=== PATIENT | female | born 2000 | race Caucasian/White ===

== ENCOUNTER 2021-01-13 03:35 | Emergency (ER) | payer SELFPAY ==
[~2021-01-13] VITALS: Ht 162.6 cm; Wt 49.0 kg
[2021-01-13 03:39] VITALS: BP 121/59
--- NOTE | 2021-01-13 03:50 | NUR ---
PT. AMBULATED TO BED 8 FROM TRIAGE WITH STEADY GAIT.
[2021-01-13] MEDS ORDERED: HYDROcodone/APAP 5/325 MG 1 TAB TAB PO ONE (04:05)
--- NOTE | 2021-01-13 04:10 | NUR ---
Report given to CLIFTON Price for transfer of care.
--- NOTE | 2021-01-13 04:34 | NUR ---
to CT via wheelchair
--- NOTE | 2021-01-13 05:12 | NUR ---
Jenniffer arteaga in [facility] - 01/13/21 at 0631 by [email or web address] PT RETURNED FROM CT VIA W.C.
--- NOTE | 2021-01-13 05:17 | NUR ---
Patient appears to be resting comfortably in bed. Awake and waiting for results. Respirations even and unlabored. AAOx4. Safety measures in place. Will continue to monitor.
[2021-01-13] MEDS ORDERED: CYCL-711 PO (06:21)
[2021-01-13] MEDS ORDERED: KETO10TA2 PO (06:21)
--- NOTE | 2021-01-13 06:30 | NUR ---
Patient discharged with v/s stable. Written and verbal after care instructions given and explained. Patient alert, oriented and verbalized understanding of instructions. Ambulatory with steady gait. All questions addressed prior to discharge. ID band removed. Patient advised to follow up with PMD. Rx of FLEXERIL AND KETOROLAC TROMETHAMINE given. Patient educated on indication of medication including possible reaction and side effects. Opportunity to ask questions provided and answered.
[2021-01-13 06:32] VITALS: BP 107/57
== END 2021-01-13 06:30 | disposition home or self-care (01) ==
LOC: MED 03:35
DX: S09.90XA Unspecified injury of head, initial encounter (principal); Z79.899 Other long term (current) drug therapy; V89.2XXA Person injured in unspecified motor-vehicle accident, traffic, initial encounter; Y93.89 Activity, other specified; Y92.89 Other specified places as the place of occurrence of the external cause; Y99.8 Other external cause status
CPT/HCPCS: 70450; 81025; 99284

== ENCOUNTER 2021-12-28 17:30 | Inpatient (IN) | payer MEDICAID ==
[~2021-12-28] VITALS: Ht 165.1 cm; Wt 59.9 kg
[~2021-12-28 17:30] MED LIST: CYCL-711 PO; KETO10TA2 PO
[2021-12-28] MEDS ORDERED: LACTATED RINGERS 1,000 ML IV SCH (18:55)
[2021-12-28] MEDS ORDERED: PRETAB PO (18:57)
[2021-12-28 18:59] VITALS: BP 114/62
[2021-12-28] MEDS ORDERED: diphenhydrAMINE 50 MG/ML VIAL IVP SCH (21:20)
[2021-12-28] MEDS ORDERED: NIFEdipine 10 MG CAPLF PO SCH (21:20)
[2021-12-28] MEDS ORDERED: BETAMETH ACET/BETAMETH NA PH 30 MG/5 ML VIAL IM SCH (21:20)
[2021-12-28] MEDS ORDERED: AMPICILLIN 2,000 MG VIAL ONE (21:52)
[2021-12-28] MEDS: AMPICILLIN 2,000 MG in NACL 0.9% 100 ML IV SCH (22:13)
[2021-12-29] MEDS ORDERED: LACTATED RINGERS 500 ML IV SCH (02:10)
[2021-12-29] MEDS ORDERED: NIFEdipine 10 MG CAPLF PO SCH (04:00)
[2021-12-29] MEDS ORDERED: AMPICILLIN 2,000 MG VIAL ONE (04:00)
[2021-12-29] MEDS: AMPICILLIN 2,000 MG in NACL 0.9% 100 ML IV SCH (04:07)
[2021-12-29] MEDS ORDERED: TRIAMCINOLONE 0.1% CRM 15 GM TUBE TP SCH (09:00)
== END 2021-12-29 05:30 | disposition home or self-care (01) | DRG 566 ==
LOC: MLD 17:30 → MFCC 19:15 → MLD 19:16 → OBSVTOIN 22:00 → MLD 12-29 00:35
PROVIDERS: ADMIT Obstetrics & Gynecology; ATTEND Obstetrics & Gynecology
DX: O60.03 Preterm labor without delivery, third trimester (principal); L03.113 Cellulitis of right upper limb; O99.713 Diseases of the skin and subcutaneous tissue complicating pregnancy, third trimester; Z20.822 Contact with and (suspected) exposure to COVID-19; Z3A.35 35 weeks gestation of pregnancy; Z87.51 Personal history of pre-term labor; Z79.899 Other long term (current) drug therapy
CPT/HCPCS: 59025; 76817; 81000; 96365; 96366; 96372; 96375; G0378; G0379; J0290; J0702; J1200; J7120; Q0092

== ENCOUNTER 2022-01-10 01:28 | Emergency (ER) | payer MEDICAID ==
[~2022-01-10] VITALS: Ht 162.6 cm; Wt 57.6 kg
[~2022-01-10 01:28] MED LIST changes: -CYCL-711 PO; -KETO10TA2 PO; +PRETAB PO
[2022-01-10 01:34] VITALS: BP 106/59
--- NOTE | 2022-01-10 01:42 | NUR ---
Patient taken to bed 6 via wheel chair.
[2022-01-10] MEDS ORDERED: ONDANSETRON 4 MG/2 ML VIAL IVP ONE ×2 (01:45→04:55)
[2022-01-10] MEDS ORDERED: NACL 0.9% 1,000 ML IV ONE ×2 (01:45→05:15)
[2022-01-10] MEDS ORDERED: KETOROLAC 30 MG/ML VIAL IVP ONE (01:45)
--- NOTE | 2022-01-10 02:03 | NUR ---
21 YO F BIB SELF NAUSEA/ VOMITNG/ D/ F/COUGH/ CHILLS/ CHEST PAIN FOR COUPLE HOURS AT A TIME X 7 DAYS. NO BLOOD IN VOMIT OR DIARRHEA. SHARP PAINS IN STOMACH 05/13 . PT HAD BABY January , NATURAL DELIVERY.PT FEVERS GET UP T0 104. PT HAS BEEN TAKING TYLENOL, MOTRIN AND ADVIL FOR PAIN. PT DECREASE APPETITE . PT IS A&OX4 , GAIT IS STEADY AND EVEN . PT DENIES SOB. PMH:NONE ALLERGIES: NKA
--- NOTE | 2022-01-10 02:35 | NUR ---
seen and examined by MARISELA with orders and carried out
[2022-01-10 02:57] LABS: BASOPHILS % (AUTO) 0.6 % (0.0-2.0); EOSINOPHILS # (AUTO) 0.4 K/uL (0-0.4); EOSINOPHILS % (AUTO) 5.8 % (0.0-4.0); HEMATOCRIT 23.7 % (36-48); HEMOGLOBIN 7.7 g/dL (12.0-16.0); LYMPHOCYTES # (AUTO) 0.3 K/uL (2.5-16.5); LYMPHOCYTES % (AUTO) 4.8 % (20.5-51.1); MEAN CORPUSCULAR HEMOGLOBIN 25 pg (27-31); MEAN CORPUSCULAR HGB CONC 33 g/dL (33-37); MEAN CORPUSCULAR VOLUME 76.5 fL (80-94); MONOCYTES # (AUTO) 0.3 K/uL (0.8-1.0); MONOCYTES % (AUTO) 4.8 % (1.7-9.3); NEUTROPHILS # (AUTO) 6.1 K/uL (1.8-7.7); PLATELET COUNT (AUTO) 453 K/uL (140-450); RED CELL DISTRIBUTION WIDTH 15.9 % (11.6-13.7); WHITE BLOOD COUNT (AUTO) 7.3 K/uL (4.8-10.8)
[2022-01-10 03:02] LABS: APPEARANCE,URINE CLEAR (CLEAR); BILIRUBIN,URINE NEGATIVE (NEGATIVE); BLOOD, URINE TRACE-I (NEGATIVE); COLOR,URINE YELLOW (YELLOW); LEUKOCYTE ESTERASE ,URINE NEGATIVE (NEGATIVE); NITRITE, URINE NEGATIVE (NEGATIVE); UGLUCOSE NEGATIVE (NEGATIVE)
[2022-01-10 03:06] LABS: RBC,URINE 0-5 /HPF (0-5); WBC,URINE 0-5 /HPF (0-5)
[2022-01-10 03:08] LABS: ALBUMIN 1.6 g/dL (3.4-5.0); ANION GAP 10.4 (8-16); CARBON DIOXIDE 24.7 mmol/L (21-32); CREATININE 0.6 mg/dL (0.6-1.3); POTASSIUM 3.1 mmol/L (3.5-5.1); TOTAL BILIRUBIN 0.4 mg/dL (0.0-1.0)
--- NOTE | 2022-01-10 04:52 | NUR ---
pt states no pain relief no nausea relief. pt states she feels chillls again
[2022-01-10] MEDS ORDERED: MORPHINE SULFATE 4 MG/ML SYR IVP ONE (04:55)
[2022-01-10] MEDS ORDERED: IBUP-2213 PO (05:08)
[2022-01-10] MEDS ORDERED: ONDA8TAB87 PO (05:08)
[2022-01-10] MEDS ORDERED: ACET-8386 PO (05:08)
[2022-01-10] MEDS ORDERED: ACETAMINOPHEN EXTRA STRENGTH 500 MG TAB PO ONE ×2 (05:15)
--- NOTE | 2022-01-10 05:30 | NUR ---
gave pt morphine. pt on heart monitor. pt sleeping quietly in bed
[2022-01-10] MEDS ORDERED: IBUPROFEN 600 MG TAB PO ONE (06:55)
--- NOTE | 2022-01-10 07:13 | NUR ---
Pt report given to devonte calhoun. Transfer of care at this time.
--- NOTE | 2022-01-10 07:18 | NUR ---
REPORT RECEIVED FROM SHARLENE VIVAS. ASSUMED CARE AT THIS TIME
--- NOTE | 2022-01-10 07:25 | NUR ---
reassessed pt temp, 100.8 oral.
--- NOTE | 2022-01-10 07:54 | NUR ---
TEMP DECREASED TO 99.4, ALL VITALS STABLE.
--- NOTE | 2022-01-10 07:55 | NUR ---
IV removed, catheter intact and site benign. Applied folded 4x4 gauze and tape to stop bleeding.
--- NOTE | 2022-01-10 07:55 | NUR ---
Patient discharged with v/s stable. Written and verbal after care instructions FOR N/V/D AND ABDOMINAL PAIN given and explained. Patient alert, oriented and verbalized understanding of instructions. Ambulatory with steady gait. All questions addressed prior to discharge. ID band removed. Patient advised to follow up with PMD. Rx of ibuprofen, ZOFRAN, HYDROCODONE given. Opportunity to ask questions provided and answered.
[2022-01-10 07:59] VITALS: BP 108/56
--- NOTE | 2022-01-10 08:11 | NUR ---
PT DROVE HERSELF, NO ONE AVAILABLE TO PICK HER UP. COMPARATIVE SOCIOLOGY PROFESSOR CONTACTED FOR UBER AT THIS TIME.
--- NOTE | 2022-01-10 08:12 | NUR ---
The patient's care was reviewed and supervised by Charlene العراقي RN.
== END 2022-01-10 07:55 | disposition home or self-care (01) ==
LOC: MED 01:28
DX: O99.893 Other specified diseases and conditions complicating puerperium (principal); O86.4 Pyrexia of unknown origin following delivery; R10.84 Generalized abdominal pain; R11.2 Nausea with vomiting, unspecified; R19.7 Diarrhea, unspecified; Z79.899 Other long term (current) drug therapy
CPT/HCPCS: 36415; 74176; 76856; 80053; 81001; 81025; 83690; 85025; 87086; 96361; 96374; 96375; 99285; J1885; J2270; J2405; J7030; Q0092

== ENCOUNTER 2023-06-07 23:45 | Observation (INO) | payer MEDICAID ==
[~2023-06-07] VITALS: Ht 165.1 cm; Wt 66.2 kg
[~2023-06-07 23:45] MED LIST changes: +ACET-8905 PO; +IBUP-2213 PO; +ONDA8TAB87 PO
[2023-06-08 01:09] LABS: BACTERIA,URINE 1+ /HPF (None Seen); RBC,URINE 0-5 /HPF (0-5); WBC,URINE 16-25 (MOD) /HPF (0-5)
[2023-06-08 01:10] LABS: MUCUS,URINE 1+ /LPF (None Seen); SQUAMOUS EPITHELIAL CELL,UR 4-10 (MOD) /LPF (0-3 (FEW)); TRICHOMONAS,URINE None Seen /HPF (None Seen); YEAST,URINE None Seen /HPF (None Seen)
[2023-06-08 01:16] LABS: APPEARANCE,URINE CLEAR (CLEAR); BILIRUBIN,URINE NEGATIVE (NEGATIVE); BLOOD, URINE NEGATIVE (NEGATIVE); COLOR,URINE YELLOW (YELLOW); LEUKOCYTE ESTERASE ,URINE 3+ (NEGATIVE); NITRITE, URINE NEGATIVE (NEGATIVE); PROTEIN,URINE NEGATIVE (NEGATIVE); UGLUCOSE NEGATIVE (NEGATIVE); UROBILINOGEN,URINE 0.2 EU/dL (0.2 - 1)
[2023-06-08] MEDS ORDERED: NACL 0.9% 500 ML IV SCH (01:35)
[2023-06-08] MEDS ORDERED: cefTRIAXone 1,000 MG VIAL ONE (02:14)
[2023-06-08] MEDS: TERBUTALINE 1 MG/ML VIAL SUBQ SCH ×2 (02:29→03:03)
[2023-06-08] MEDS: NACL 0.9% 1,000 ML IV SCH ×3 (02:31→12:59)
== END 2023-06-08 14:15 | disposition home or self-care (01) ==
LOC: MLD 23:45
PROVIDERS: ADMIT Obstetrics & Gynecology; ATTEND Obstetrics & Gynecology
DX: O62.9 Abnormality of forces of labor, unspecified (principal); Z20.822 Contact with and (suspected) exposure to COVID-19; Z3A.25 25 weeks gestation of pregnancy
CPT/HCPCS: 36415; 81001; 82731; 87086; 87426; 96361; 96365; 96372; G0378; G0379; J0696; J3105; J7060

== ENCOUNTER 2023-11-28 00:09 | Emergency (ER) | payer MEDICAID ==
[~2023-11-28] VITALS: Ht 162.6 cm; Wt 58.1 kg
[~2023-11-28 00:09] MED LIST changes: -ACET-8905 PO; -IBUP-2213 PO; -ONDA8TAB87 PO
[2023-11-28 00:27] VITALS: BP 113/68; PULSE 97; RESP 16; TEMP 97.7; O2SAT 100
[2023-11-28 02:06] LABS: BASOPHILS # (AUTO) 0.1 K/uL (0.00-0.22); BASOPHILS % (AUTO) 0.8 % (0.0-2.0); EOSINOPHILS # (AUTO) 0.2 K/uL (0-0.4); EOSINOPHILS % (AUTO) 1.3 % (0.0-4.0); HEMATOCRIT 34.9 % (36-48); HEMOGLOBIN 11.8 g/dL (12.0-16.0); LYMPHOCYTES # (AUTO) 2.3 K/uL (2.5-16.5); LYMPHOCYTES % (AUTO) 19.7 % (20.5-51.1); MEAN CORPUSCULAR HEMOGLOBIN 27 pg (27-31); MEAN CORPUSCULAR HGB CONC 34 g/dL (33-37); MEAN CORPUSCULAR VOLUME 80.9 fL (80-94); MONOCYTES # (AUTO) 0.6 K/uL (0.8-1.0); MONOCYTES % (AUTO) 4.8 % (1.7-9.3); NEUTROPHILS # (AUTO) 8.7 K/uL (1.8-7.7); NEUTROPHILS % (AUTO) 73.4 % (42.2-75.2); PLATELET COUNT (AUTO) 493 K/uL (140-450); RED BLOOD CELL COUNT(AUTO) 4.31 MIL/uL (4.20-5.40); WHITE BLOOD COUNT (AUTO) 11.9 K/uL (4.8-10.8)
[2023-11-28] MEDS: DICYCLOMINE 20 MG/2 ML VIAL IM ONE (02:09)
[2023-11-28] MEDS: HYDROcodone/APAP 5/325 MG 1 TAB TAB PO ONE (02:13)
[2023-11-28 02:14] LABS: ANION GAP 12.7 (8-16); CARBON DIOXIDE 25.4 mmol/L (21-32); CREATININE 0.6 mg/dL (0.6-1.3); POTASSIUM 5.1 mmol/L (3.5-5.1)
[2023-11-28] MEDS: NACL 0.9% 1,000 ML IV ONE (02:14)
[2023-11-28 02:19] LABS: ALBUMIN 3.1 g/dL (3.4-5.0); MAGNESIUM 2.3 mg/dL (1.8-2.4); PHOSPHORUS 3.8 mg/dL (2.5-4.9); TOTAL BILIRUBIN 0.5 mg/dL (0.0-1.0); TOTAL PROTEIN, SERUM 7.7 g/dL (6.4-8.2)
[2023-11-28] MEDS ORDERED: PRED20TA5 PO (02:59)
[2023-11-28] MEDS ORDERED: HYDR-5071 PO (02:59)
[2023-11-28 03:12] VITALS: BP 105/50; PULSE 74; RESP 15; TEMP 98.1; O2SAT 95
== END 2023-11-28 03:12 | disposition home or self-care (01) ==
LOC: MED 00:09
DX: K51.80 Other ulcerative colitis without complications (principal); Z79.899 Other long term (current) drug therapy
CPT/HCPCS: 36415; 80048; 80076; 83690; 83735; 84100; 85025; 99283; J0500; J7030